=== PATIENT | male | born 1975 | race Hispanic/Latino ===

== ENCOUNTER 2022-12-15 15:11 | Emergency (ER) | payer SELFPAY ==
--- OUTSIDE RECORDS SUMMARY | 2022-12-15 15:13 | XMS REPORT | Continuity of Care Document ---
:1975 Author Organization [facility] t Address [address] [place] [address] [address] [place] [address] Care Team Providers Name Role Phone Unavailable Unavailable Unavailable Problems This patient has no known problems. Allergies, Adverse Reactions, Alerts This patient has no known allergies or adverse reactions. Medications This patient has no known medications. Procedures This patient has no known procedures. Encounters Start End Encounter Admission Attending Care Care Encounter Source Date/Time Date/Time Type Type Clinicians Facility Department ID 2022-12-15 2022-12-[address] [facility] SFA [id number] 13:47:25 13:47:25 [id number] [address] [place] Results This patient has no known results.
[2022-12-15 15:54] LABS: Hematocrit 43.7 % (39.6-49.0); Lymphocytes % 5.8 % (15.3-44.8); MCV 91.2 fL (80-100); MPV 7.2 fL (7.6-11.3); Platelets 328 thou/uL (152-406); RBC Red Blood Cell Count 4.79 M/uL (4.33-5.43)
[2022-12-15] MEDS ORDERED: CLINDAMYCIN 600MG/D5W 50 ML IV ONE (15:59)
[2022-12-15 16:19] LABS: Albumin 3.6 g/dL (3.4-5.0); Bilirubin Total 0.9 mg/dL (0.2-1.0); Potassium 3.8 mEq/L (3.5-5.1); Protein, Total 7.9 g/dL (6.4-8.2)
--- NOTE | 2022-12-15 17:02 | RAD REPORT ---
EXAM DESCRIPTION: CT - Soft Tissue Neck W/Contr CLINICAL HISTORY: SWELLING Pain and swelling COMPARISON: <Comparisons> TECHNIQUE All CT scans are performed using dose optimization technique as appropriate and may includ e automated exposure control or mA/KV adjustment according to patient size. FINDINGS: There is significant enlargement and inflamed appearance of left submandibular gland. The adjacent skin is thickened with inflammation in the adjacent fat. Several mildly enlarged lymph nodes are seen as well since adjacent to the submandibular gland. There is an irregular walled off fluid collection seen which extends from the floor of the mouth infe riorly to the level of the left height weight bone. This extends approximately 6 cm in length and is 1.5 cm in transverse dimension. This is most likely a diving ranula. Mildly prominent left jugulodigastric lymph nodes are present. IMPRESSION: Significant inflammatory and edema of the left submandibular gland with large left-sided diving ranula suspected.
--- NOTE | 2022-12-15 18:57 | EDPHYS ---
Physician Documentation [facility] Name: Milton Carter Age: 47 yrs Sex: Male : 1975 Arrival Date: 12/15/2022 Time: 15:11 Bed 11 Private MD: ED Physician Bo Martinez HPI: 12/15 15:34 This 47 yrs old Male presents to ER via Ambulatory with complaints of Swollen snw neck. 15:34 The patient presents with sore throat. Onset: The symptoms/episode began/occurred snw gradually, 2 week(s) ago, and became persistent. The patient has not recently seen a physician. intermittently taking some antibiotic occasionally. Historical: - Allergies: 15:23 No Known Allergies; me1 - Home Meds: 15:23 None [Active]; me1 - PMHx: 15:23 None; me1 - PSHx: 15:23 None; me1 - Immunization history:: Adult Immunizations up to date. - Social history:: Smoking status: Patient reports the use of cigarette tobacco products, smokes one-half pack cigarettes per day, stopped 3 days ago. . ROS: 15:33 Constitutional: Negative for fever, chills, and weight loss, Eyes: Negative for injury, snw pain, redness, and discharge, Cardiovascular: Negative for chest pain, palpitations, and edema, Respiratory: Negative for shortness of breath, cough, wheezing, and pleuritic chest pain, Abdomen/GI: Negative for abdominal pain, nausea, vomiting, diarrhea, and constipation, Back: Negative for injury and pain, : Negative for injury, bleeding, discharge, and swelling, MS/Extremity: Negative for injury and deformity, Skin: Negative for injury, rash, and discoloration, Psych: Negative for depression, anxiety, suicide ideation, homicidal ideation, and hallucinations. 15:33 ENT: Positive for sore throat. 15:33 Neck: Positive for swelling, swollen nodes. 15:33 Neuro: Positive for headache. Exam: 15:32 Constitutional: This is a well developed, well nourished patient who is awake, alert, snw and in no acute distress. Eyes: Pupils equal round and reactive to light, extra-ocular motions intact. Lids and lashes normal. Conjunctiva and sclera are non-icteric and not injected. Cornea within normal limits. Periorbital areas with no swelling, redness, or edema. Chest/axilla: Normal chest wall appearance and motion. Nontender with no deformity. No lesions are appreciated. Cardiovascular: Regular rate and rhythm with a normal S1 and S2. No gallops, murmurs, or rubs. Normal PMI, no JVD. No pulse deficits. Respiratory: Lungs have equal breath sounds bilaterally, clear to auscultation and percussion. No rales, rhonchi or wheezes noted. No increased work of breathing, no retractions or nasal flaring. Abdomen/GI: Soft, non-tender, with normal bowel sounds. No distension or tympany. No guarding or rebound. No evidence of tenderness throughout. Back: No spinal tenderness. No costovertebral tenderness. Full range of motion. Skin: Warm, dry with normal turgor. Normal color with no rashes, no lesions, and no evidence of cellulitis. MS/ Extremity: Pulses equal, no cyanosis. Neurovascular intact. Full, normal range of motion. Neuro: Awake and alert, GCS 15, oriented to person, place, time, and situation. Cranial nerves II-XII grossly intact. Motor strength 5/5 in all extremities. Sensory grossly intact. Cerebellar exam normal. Normal gait. Psych: Awake, alert, with orientation to person, place and time. Behavior, mood, and affect are within normal limits. 15:32 Head/face: Noted is tenderness, that is mild, of the left jaw. 15:32 ENT: External ear(s): are unremarkable, Ear canal(s): cerumen impaction, Examination of the other ear shows no obvious abnormality, Mouth: is normal, Posterior pharynx: no acute changes, Dental exam: dental caries, that is moderate, fractured teeth are noted, specifically the lower left first molar (#19). 15:32 Neck: External neck: is normal, C-spine: appears grossly normal, Thyroid: appears normal, Trachea: is midline with no obvious abnormalities, Lymph nodes: lymphadenopathy is appreciated, submandibular nodes. Vital Signs: 15:18 BP 156 / 93; Pulse 91; Resp 17; Temp 98.6; Pulse Ox 97% on R/A; Weight 112.49 kg; me1 Height 5 ft. 9 in. ; Pain 8/10; 16:54 BP 142 / 91; Pulse 84; Resp 18; Pulse Ox 100% on R/A; mb9 17:47 BP 139 / 82; Pulse 80; Resp 16; Pulse Ox 99% on R/A; mb9 18:47 BP 143 / 92; Pulse 88; Resp 18; Pulse Ox 98% on R/A; mb9 15:18 Body Mass Index 36.62 (112.49 kg, 175.26 cm) me1 15:18 Pain Scale: Adult me1 MDM: 15:27 Patient medically screened. snw 18:52 Differential diagnosis: epiglottitis, gingivostomatitis, group A strep tonsillitis, snw mayo's angina, retropharyngeal abcess tonsillitis. Data reviewed: vital signs, nurses notes. Management of patient was discussed with the following: [place] Attendant: Dr. Singh, reina abx and steroids, call in am to set appt for Thursday. Counseling: I had a detailed discussion with the patient and/or guardian regarding: the historical points, exam findings, and any diagnostic results supporting the discharge/admit diagnosis, the presence of at least one elevated blood pressure reading (>120/80) during this emergency department visit, lab results, radiology results, the need for outpatient follow up, for definitive care, an ENT specialist, to return to the emergency department if symptoms worsen or persist or if there are any questions or concerns that arise at home. Response to treatment: the patient's symptoms have mildly improved after treatment. Special discussion: Based on the history and exam findings, there is no indication for further emergent testing or inpatient evaluation. I discussed with the patient/guardian the need to see the ENT specialist for further evaluation of the symptoms. 18:54 Management of patient was discussed with the following: Attempted transfer to [facility], at [facility]. Spoke with JESSICA Schaeffer at [facility]. Dr. Dozier stated he only deals with odontogenic infections and refused pt in transfer.. 12/15 15:31 Order name: CBC with Diff; Complete Time: 15:57 [facility] 12/15 15:31 Order name: CMP; Complete Time: 16:22 sn 12/15 15:32 Order name: Blood Culture Adult (2) [facility] 12/15 15:31 Order name: CT Soft Tissue Neck W/contr; Complete Time: 17:05 [facility] 12/15 15:34 Order name: IV Saline Lock; Complete Time: 15:46 mb9 Administered Medications: 15:48 CANCELLED (Other Intervention Used): Clindamycin IVPB 300 mg IVPB once over 30 mins; snw (mix in 50 mL) 15:50 Drug: Clindamycin IVPB 600 mg Route: IVPB; Infused Over: 30 mins; Site: right forearm; mb9 16:54 Follow up: Response: No adverse reaction; IV Status: Completed infusion mb9 19:05 Drug: Ketorolac IVP 30 mg Route: IVP; Site: right forearm; mb9 19:06 Follow up: Response: No adverse reaction mb9 19:05 Drug: HYDROcodone-acetaminophen PO 5 mg-325 mg 1 tabs Route: PO; mb9 19:06 Follow up: Response: No adverse reaction mb9 Disposition: 17:05 Co-signature as Attending Physician, Bo PARK was immediately available on-site ms3 in the Emergency Department for consultation in the care of the patient. Disposition Summary: 12/15/22 18:57 Discharge Ordered Location: Home snw Condition: Stable snw Diagnosis - Diving Ranula - infected snw Followup: snw - With: Claudia Singh MD - When: Tomorrow - Reason: Recheck today's complaints, Continuance of care, Re-evaluation by your physician Discharge Instructions: - Discharge Summary Sheet snw - Submandibular Gland Removal snw - Submandibular Gland Removal, Care After snw Forms: - Medication Reconciliation Form snw - Thank You Letter snw - Antibiotic Education snw - Prescription Opioid Use snw - Patient Portal Instructions snw - Leadership Thank You Letter snw Prescriptions: - Clindamycin HCl 300 mg Oral Capsule - take 1 capsule by ORAL route every 8 hours for 10 days; 30 capsule; Refills: 0, snw Product Selection Permitted - Mobic 7.5 mg Oral Tablet - take 1 tablet by ORAL route once daily take with food; 20 tablet; Refills: 0, snw Product Selection Permitted - Prednisone 20 mg Oral Tablet - take 2 tablets by ORAL route once daily for 5 days; 10 tablet; Refills: 0, snw Product Selection Permitted Signatures: Dispatcher [employer] EDOdette Carmona FNP-C FNP-Bo De Jesus DO DO ms3 Rachna Almaguer RN RN mb9 Codie Coombs RN RN me1 Corrections: (The following items were deleted from the chart) 15:48 15:32 Clindamycin IVPB 300 mg IVPB once over 30 mins; (mix in 50 mL) ordered. snw snw 15:48 15:47 Clindamycin IVPB 300 mg IVPB once over 30 mins; (mix in 50 mL) ordered. snw snw
--- NOTE | 2022-12-15 18:57 | ER ---
Nurse's Notes [facility] Name: Milton Carter Age: 47 yrs Sex: Male : 1975 Arrival Date: 12/15/2022 Time: 15:11 Bed 11 Private MD: Diagnosis: Diving Ranula - infected Presentation: 12/15 15:18 Chief complaint: Patient states: headache and swollen lymph node to left neck that me1 started 2 weeks ago. c/o pain with swallowing. Coronavirus screen: Vaccine status: Patient reports being unvaccinated. At this time, the client does not indicate any symptoms associated with coronavirus-19. Ebola Screen: No symptoms or risks identified at this time. Initial Sepsis Screen: Does the patient meet any 2 criteria? HR > 90 bpm. No. Patient's initial sepsis screen is negative. Does the patient have a suspected source of infection? No. Patient's initial sepsis screen is negative. Risk Assessment: Do you want to hurt yourself or someone else? Patient reports no desire to harm self or others. Onset of symptoms is unknown. 15:18 Method Of Arrival: Ambulatory me1 15:18 Acuity: SERG 3 me1 Historical: - Allergies: 15:23 No Known Allergies; me1 - Home Meds: 15:23 None [Active]; me1 - PMHx: 15:23 None; me1 - PSHx: 15:23 None; me1 - Immunization history:: Adult Immunizations up to date. - Social history:: Smoking status: Patient reports the use of cigarette tobacco products, smokes one-half pack cigarettes per day, stopped 3 days ago. . Screenin:30 [facility] ED Fall Risk Assessment (Adult) History of falling in the last 3 months, mb9 including since admission No falls in past 3 months (0 pts) Confusion or Disorientation No (0 pts) Intoxicated or Sedated No (0 pts) Impaired Gait No (0 pts) Mobility Assist Device Used No (0 pt) Altered Elimination No (0 pt) Score/Fall Risk Level 0 - 2 = Low Risk Oriented to surroundings, Maintained a safe environment, Educated pt \T\ family on fall prevention, incl call for assistance when getting out of bed. Abuse screen: Denies threats or abuse. Nutritional screening: No deficits noted. Tuberculosis screening: No symptoms or risk factors identified. Assessment: 15:51 General: Appears in no apparent distress. Behavior is calm, cooperative, appropriate mb9 for age. Pain: Complains of pain in left jaw Pain does not radiate. Quality of pain is described as throbbing. Neuro: Lewis Agitation-Sedation Scale (RASS): 0 - Alert and Calm Level of Consciousness is awake, alert, obeys commands, Oriented to person, place, time, situation, Appropriate for age. Cardiovascular: Patient's skin is warm and dry. Respiratory: Airway is patent Respiratory effort is even, unlabored, Respiratory pattern is regular, symmetrical. GI: No signs and/or symptoms were reported involving the gastrointestinal system. EENT: Throat on left. Derm: Skin is pink, warm \T\ dry. Musculoskeletal: Range of motion: intact in all extremities. 16:54 Reassessment: No changes from previously documented assessment. Patient and/or family mb9 updated on plan of care and expected duration. Pain level reassessed. Patient is alert, oriented x 3, equal unlabored respirations, skin warm/dry/pink. 19:17 Reassessment: No changes from previously documented assessment. Patient and/or family mb9 updated on plan of care and expected duration. Pain level reassessed. Patient is alert, oriented x 3, equal unlabored respirations, skin warm/dry/pink. Vital Signs: 15:18 BP 156 / 93; Pulse 91; Resp 17; Temp 98.6; Pulse Ox 97% on R/A; Weight 112.49 kg; me1 Height 5 ft. 9 in. ; Pain 8/10; 16:54 BP 142 / 91; Pulse 84; Resp 18; Pulse Ox 100% on R/A; mb9 17:47 BP 139 / 82; Pulse 80; Resp 16; Pulse Ox 99% on R/A; mb9 18:47 BP 143 / 92; Pulse 88; Resp 18; Pulse Ox 98% on R/A; mb9 15:18 Body Mass Index 36.62 (112.49 kg, 175.26 cm) md1 15:18 Pain Scale: Adult md1 ED Course: 15:14 Patient arrived in ED. im 15:23 Triage completed. me1 15:23 Arm band placed on Patient placed in waiting room. me1 15:26 Odette Reyes FNP-C is PHCP. snw 15:26 Bo Martinez DO is Attending Physician. snw 15:27 Rachna Almaguer, RN is Primary Nurse. mb9 15:30 Placed in gown. Bed in low position. Call light in reach. Side rails up X 1. Client mb9 placed on continuous cardiac and pulse oximetry monitoring. NIBP monitoring applied. 15:30 No provider procedures requiring assistance completed. mb9 15:46 CMP Sent. mb9 15:46 CBC with Diff Sent. mb9 15:46 Blood Culture Adult (2) Sent. mb9 15:50 Inserted saline lock: 20 gauge in right forearm, using aseptic technique. mb9 16:50 CT Soft Tissue Neck W/contr In Process Unspecified. EDMS 18:56 Claudia Singh MD is Referral Physician. snw 19:18 IV discontinued, intact, bleeding controlled, No redness/swelling at site. Pressure mb9 dressing applied. Administered Medications: 15:48 CANCELLED (Other Intervention Used): Clindamycin IVPB 300 mg IVPB once over 30 mins; snw (mix in 50 mL) 15:50 Drug: Clindamycin IVPB 600 mg Route: IVPB; Infused Over: 30 mins; Site: right forearm; mb9 16:54 Follow up: Response: No adverse reaction; IV Status: Completed infusion mb9 19:05 Drug: Ketorolac IVP 30 mg Route: IVP; Site: right forearm; mb9 19:06 Follow up: Response: No adverse reaction mb9 19:05 Drug: HYDROcodone-acetaminophen PO 5 mg-325 mg 1 tabs Route: PO; mb9 19:06 Follow up: Response: No adverse reaction mb9 Medication: 15:30 VIS not applicable for this client. mb9 Outcome: 18:57 Discharge ordered by . snw 19:17 Discharged to home ambulatory. mb9 19:17 Condition: stable 19:17 Discharge instructions given to patient, Instructed on discharge instructions, follow up and referral plans. Demonstrated understanding of medications, Prescriptions given X 3. 19:18 Patient left the ED. mb9 Signatures: Dispatcher [employer] EDMS Odette Reyes, GREY INSPECTOR-C GREY INSPECTOR-Csnw Rachna Almaguer, RN RN mb9 Emily Buck Michelle RN RN me1
[2022-12-15] MEDS ORDERED: HYDROCODONE/APAP 5/325 MG TAB ONE (19:09)
[2022-12-15] MEDS ORDERED: KETOROLAC 30 MG/ML INJ ONE (19:09)
== END 2022-12-15 19:18 | disposition home or self-care (01) ==
LOC: ER 15:11
DX: K11.6 Mucocele of salivary gland (principal); F17.210 Nicotine dependence, cigarettes, uncomplicated
CPT/HCPCS: 96365; 87040 ×2; 85025; 36415; 80053; 70491; 96375; 99284; Q9967